=== PATIENT | female | born 1990 | race Caucasian/White ===

== ENCOUNTER 2016-12-10 22:32 | Emergency (ER) | payer OTHER ==
[~2016-12-10] VITALS: Ht 160 cm; Wt 59.0 kg
[~2016-12-10 22:32] MED LIST: ALBU8.5H2 INHALATION; IBUP-1827 PO; ONDA4TAB9 PO
[2016-12-10 23:09] VITALS: BP 125/84; PULSE 90; RESP 18; O2SAT 98
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
[2016-12-10] MEDS ORDERED: 0.9% Sodium Chloride 1,000 ML IV ONE (23:25)
[2016-12-10] MEDS ORDERED: MetoCLOpramide 5 mg/mL 2 mL Inj IVPUSH ONE (23:25)
[2016-12-11 01:28] VITALS: BP 102/56; PULSE 95; RESP 16; O2SAT 96
== END 2016-12-11 01:32 | disposition home or self-care (01) ==
LOC: SED 22:32
DX: G44.309 Post-traumatic headache, unspecified, not intractable (principal); W22.8XXS Striking against or struck by other objects, sequela; Y93.89 Activity, other specified; Y92.89 Other specified places as the place of occurrence of the external cause; Y99.8 Other external cause status; F19.10 Other psychoactive substance abuse, uncomplicated; M79.7 Fibromyalgia; J45.909 Unspecified asthma, uncomplicated; G35 Multiple sclerosis; F17.200 Nicotine dependence, unspecified, uncomplicated
CPT/HCPCS: 96361; 96374; 96375; 99284; J1200; J2765; J7030

== ENCOUNTER 2017-01-23 19:23 | Emergency (ER) | payer OTHER ==
[~2017-01-23] VITALS: Ht 180.3 cm; Wt 56.8 kg
[2017-01-23 19:36] VITALS: BP 107/70; PULSE 94; RESP 16; O2SAT 98
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
--- NOTE | 2017-01-23 20:41 | DRSVH ---
PROCEDURE: CT FACE WITHOUT CONTRAST ([id number]) INDICATIONS: trauma TECHNIQUE: Noncontrast 1.5 mm thick axial images acquired from the mandible through the frontal sinuses, with co adalberto and sagittal reformatting. For radiation dose reduction, the following was used: automated ex posure control. COMPARISON: None. FINDINGS: Image quality: Excellent. Bones and teeth: Orbital alvarez are intact. There apical lucencies surrounding the central and latera l right mandibular incisors. Sinus alvarez show no fracture or deformity. Nasal bones and septum are intact. Visualized portions o f the mandible demonstrate no fractures or subluxation. Zygomatic arches are intact. Pterygoid plat es are intact. Visualized portions of the skull base and auditory canals are intact. Sinuses: Paranasal sinuses are aerated, without fluid levels, mucosal thickening, or mucoceles. Mas toid air cells are aerated. Soft tissues: There is right periorbital soft tissue swelling. Vascular: Visualized vascular structures appear normal in the absence of contrast. Bony vascular fo ramina and canals are intact. IMPRESSION: No fracture. Right periorbital soft tissue swelling. Periapical lucency surrounding the central and lateral right mandibular incisors, suggestive of denta l pathology. Please correlate clinically and with dental examination. Dictated by: Bobby Ha M.D. on 01/23/2017 at 20:33 Approved by: Bobby Ha M.D. on 01/23/2017 at 20:40
[2017-01-23] MEDS ORDERED: METO-301 PO (21:23)
== END 2017-01-23 21:38 | disposition home or self-care (01) ==
LOC: SED 19:23
DX: S00.83XA Contusion of other part of head, initial encounter (principal); S10.93XA Contusion of unspecified part of neck, initial encounter; Y07.03 Male partner, perpetrator of maltreatment and neglect; Y93.89 Activity, other specified; Y92.9 Unspecified place or not applicable; Y99.8 Other external cause status; R51 Headache; R11.0 Nausea; M79.7 Fibromyalgia; J45.909 Unspecified asthma, uncomplicated; F17.200 Nicotine dependence, unspecified, uncomplicated

== ENCOUNTER 2017-04-09 23:34 | Emergency (ER) | payer OTHER ==
[~2017-04-09] VITALS: Ht 160 cm; Wt 56.8 kg
[~2017-04-09 23:34] MED LIST changes: +METO-301 PO
--- NOTE | 2017-04-09 23:56 | ED.REPORT ---
HPI-Dental/Mouth Prob Date of Service Apr 09, 2017 ED Provider: Dr. Boyd The pt is a 26 y/o female with a hx of multiple sclerosis, fibromyalgia,asthma, and meth and heroin use who presents to the ED complaining of left lower dental pain, onset an hour ago. She denies fever and any other sx at this time. Nursing Notes Stated Complaint: DENTAL PAIN Chief Complaint: Dental Nursing Notes Reviewed: Yes Allergies: Coded Allergies: No Known Allergies (Verified , 01/23/17) Scheduled Albuterol HFA (Proair HFA) 8.5 Gm Hfa.aer.ad 2 PUFFS INHALATION Q4H Amoxicillin (Amoxicillin) 500 Mg Tablet 500 MG PO TID Scheduled PRN Ibuprofen (Ibuprofen) 600 Mg Tablet 600 MG PO QID PRN PRN For Pain Ibuprofen (Ibuprofen) 600 Mg Tablet 600 MG PO QID PRN PRN For Pain Metoclopramide (Reglan) 10 Mg Tablet 10 MG PO QID PRN PRN Headache Ondansetron ODT (Zofran ODT) 4 Mg Tablet 4 MG PO Q4H PRN PRN For Nausea General Time Seen by MD: 23:56 Chief Complaint Tooth pain Hx Obtained From: Patient Arrived By: Walk-in Onset Occurred: 1 - 4 hours ago Symptom Duration: Since onset Location: : Tooth lower L molar Quality: Painful Severity: Current: Moderate Severity: Maximum: Moderate Recent Healthcare: No recent doctor visit Past Medical History Past Medical History Multiple Sclerosis heart murmur Post concussive headaches Pt reports pelvic fracture due to childbirth reports having a traumatic brain injury Fibromyalgia Heart murmur Reports: Asthma Past Surgical History Cardiac surgery as infant Reports: Tonsillectomy Smoking History Current Some Day Smoker Social History 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 Physical Exam Initial Vital Signs Vital Signs (First) Date Time Temp Pulse Resp B/P Pulse Ox O2 Delivery O2 Flow Rate FiO2 04/09/17 23:57 36.7 98 18 108/68 99 Room Air Initial VS: Reviewed Head / Eyes: Atraumatic, Normocephalic Respiratory: No respiratory distress Cardiovascular: Intact distal pulses Abdomen / GI: No guarding, No distention Extremities: Vascular intact, Neuro intact, No swelling, No tenderness Skin: Warm, Dry, No cyanosis Neurologic: Alert, Oriented, Nonfocal ENT: Atraumatic, Airway patent, Pharynx NL, No facial swelling Tooth #17 is tilted and impacted against tooth #18. Both tooth #17 and tooth #19 have fairly heavy caries by tooth decay. Tooth #19 also has distal lingual cusp fracture. There is no airway compromise. Neck: Atraumatic, Supple, Full range of motion, No swelling, Non-tender General/Constitutional: Awake, Alert, Cooperative Distress / Hydration: Positive: Distress mild Re-Eval/Medical Decision Med Decision/Clinical Course 26-year-old presents with lower jaw pain from impacted and carious wisdom tooth along with a fracture of an additional molar. Declines dental block after initial agreement. Home with amoxicillin ibuprofen and single dose Decadron tonight. Follow-up with dentist list provided. Re-Evaluation/Progress : Time of Eval: 00:39 Re-Evaluation/Progress Note: Rechecked the pt. She refused her Ketorolac shot. Discussed diagnosis and plan to discharge. Pt understands and agrees with the plan. F/U instruction and RTER warning given. All questions addressed. Counseled Regarding: Diagnosis, Need for follow-up, When/why to return to ED Discharge & Departure Primary Impression: Dental abscess Additional Impression: Impacted third molar tooth Disposition: Home Discharge Condition All VS Reviewed: Yes Condition: Stable Patient Instructions: Dental Abscess (ED), Dental Caries (ED) Additional Instructions: Amoxicillin three times daily Follow-up with dentist see dental list. Ibuprofen 600 mg four times daily for pain. May use extra strength Tylenol four times daily also. Return if any difficulties with swallowing speaking or eating. Referrals: [facility] (PCP) Scribe Attestation Portions of this note were transcribed by Mackenzie Bain. I,, personally performed the history,physical exam and medical decision-making;I reviewed and confirmed the accuracy of the information in the transcribed note. Signed by Gaby Vines. 04/10/17 Eliel Boyd MD Apr 09, 2017 23:56 Mackenzie Bain Apr 10, 2017 00:43
[2017-04-09 23:57] VITALS: BP 108/68; PULSE 98; RESP 18; O2SAT 99
[2017-04-10] MEDS ORDERED: Bupivacaine 0.5%/EPI 50 mL Inj INFILTRATE ONE (00:10)
[2017-04-10] MEDS ORDERED: Dexamethasone 20 mg/2 mL Oral Solution PO ONE (00:10)
[2017-04-10] MEDS ORDERED: IBUP-1827 PO (00:45)
[2017-04-10] MEDS ORDERED: AMOX500T2 PO (00:45)
[2017-04-10 01:03] VITALS: BP 101/46; PULSE 87; RESP 20; O2SAT 99
== END 2017-04-10 01:04 | disposition home or self-care (01) ==
LOC: SED 23:34
DX: K04.7 Periapical abscess without sinus (principal); K01.1 Impacted teeth; F17.200 Nicotine dependence, unspecified, uncomplicated
CPT/HCPCS: 96372; 99283; J1885